=== PATIENT | female | born 1945 | race Caucasian/White ===

== ENCOUNTER → 2017-08-21 | Outpatient (CLI) | payer MEDICARE ==
--- NOTE | 2017-08-21 14:54 | Diagnostic Imaging Report ---
INDICATION: R/O TB. COMPARISON: None. FINDINGS: A single frontal view of the chest demonstrates normal heart size and pulmonary vascularity. The lungs are hyperinflated but otherwise clear. No large pleural effusion or pneumothorax is seen. The visualized osseous structures show no acute abnormalities. IMPRESSION: 1. No acute cardiopulmonary process. 2. Background of COPD. Dictated by: Dictated on workstation # [id number]
== END ==
LOC: RAD 13:54
PROVIDERS: ATTEND Family Medicine
DX: J44.9 Chronic obstructive pulmonary disease, unspecified (principal)
CPT/HCPCS: 71045

== ENCOUNTER → 2021-04-29 | Outpatient (CLI) | payer MEDICARE ==
[~2021-04-29] MED LIST: CATHETER FLUSH 10 ML SYR IV PRN; HOLD METFORMIN - RECEIVED CONTRAST 20 ML VIAL IV SCH; IOHEXOL 350 MG/ML 100 ML (OMNIPAQUE 350) VIAL IV ONE; NS 100 ML (IVPB) BAG IV ONE
[2021-04-29 09:19] LABS: CREATININE SERUM 0.68 MG/DL (0.60-1.30)
--- NOTE | 2021-04-29 10:26 | Diagnostic Imaging Report ---
EXAMINATION: CT abdomen and pelvis with and without intravenous contrast. TECHNIQUE: Precontrast acquisitions were acquired through the abdomen and pelvis. Multiple contiguous axial images were obtained through the abdomen and pelvis after the administration of intravenous contrast. All CT scans use one or more of the following dose optimizing techniques: automated exposure control, MA and/or KvP adjustment based on patient size and exam type or iterative reconstruction. HISTORY: Ovarian cancer, right inguinal hernia, right lower quadrant pain. COMPARISON: None available. FINDINGS: Limited views of the lower thorax are unremarkable. The liver is normal without focal lesion. There is no biliary ductal dilation. Gallbladder is normal. Pancreas is normal. Spleen is normal. Adrenal glands are normal. The kidneys are normal. There is no hydronephrosis. Urinary bladder is normal. There is a pessary device in the vagina. There is a serosal implant along the anterior surface of the left hemiliver measuring 2.3 x 1.4 cm. There is a moderate amount of ascites. There are implants along the left paracolic gutter measuring up to 1.2 cm. There is a small amount of fluid and a tiny right inguinal hernia. There is a nodule associated with the tip of the right hemiliver that measures 4.1 x 2.1 cm. Bowel is normal in caliber without obstruction or inflammation. There is no free air. No abdominal or pelvic lymphadenopathy. Aorta is normal in caliber without aneurysm. There are no suspicious osseus lesions. IMPRESSION: 1. Moderate ascites with enhancing nodules in the left paracolic gutter and associated with the liver surface consistent with metastatic ovarian cancer. 2. Small amount of fluid and a tiny right inguinal hernia. Dictated by: Dictated on workstation # [id number]
== END ==
LOC: RAD 09:45
PROVIDERS: ATTEND Nurse Practitioner
DX: C56.9 Malignant neoplasm of unspecified ovary (principal); K40.90 Unilateral inguinal hernia, without obstruction or gangrene, not specified as recurrent
CPT/HCPCS: 36415; 74178; 82565; 84520

== ENCOUNTER → 2021-05-27 | Outpatient (CLI) | payer MEDICARE ==
[2021-05-27 11:12] VITALS: BP 127/61
--- NOTE | 2021-05-27 13:46 | Diagnostic Imaging Report ---
Indication: Ascites. Sonographic interrogation of the abdomen does show a small amount of ascites in left lower quadrant. Marking was provided in left lower quadrant for performance of paracentesis by Dr. Galarza. IMPRESSION: Marking for paracentesis for Dr. Galarza. Dictated by: Dictated on workstation # [id number]
--- NOTE | 2021-05-27 21:25 | OPERATIVE REPORT ---
DATE OF SERVICE: 05/27/2021 ATTENDING MILIEU COUNSELOR: [facility]. PREPROCEDURE DIAGNOSIS: Symptomatic ascites with a history of ovarian cancer. POSTPROCEDURE DIAGNOSES: Symptomatic ascites with a history of ovarian cancer with blood-tinged slightly thick transudative fluid. PROCEDURE: Paracentesis under ultrasound guidance. SURGEON: Leana Contreras MD ANESTHESIA: Local. ESTIMATED BLOOD LOSS: Minimal. FINDINGS: Same as postoperative diagnoses. DISPOSITION: The patient tolerated the procedure well. INDICATIONS: The patient is a 75-year-old female with a history of ovarian cancer that was diagnosed approximately 4 years ago. She knows that this was an advanced ovarian cancer; however, only elected to proceed with a total hysterectomy and no chemotherapy, radiation or any other therapeutic measures. She presented with abdominal distention for the past several weeks. A CT scan was performed, which did show a moderate amount of ascites. She states that the ascites has increased in size and become uncomfortable. She will need a paracentesis for diagnostic purposes as well as for therapeutic reasons. An ultrasound was performed beforehand and the left lower abdominal quadrant was marked before the procedure. The abdomen was then prepped and draped in standard surgical fashion. A 1% lidocaine with epinephrine was then used to anesthetize the skin, subcutaneous tissue, muscle layers as well as the peritoneal lining. A vertical skin incision was then made using a #11 blade and the trocar and catheter were then placed into the peritoneal cavity withdrawing of blood-tinged slightly thick transudative fluid. The catheter was then connected to tubing and gravity drainage bag. The catheter was then cleaned and covered with Op-Site. The patient tolerated the procedure well. We will continue with drainage until she is asymptomatic and send the fluid off for cytology and once she is asymptomatic and decompressed remove the catheter. Job ID: [id number] DocumentID: [id number] Dictated Date: 05/27/2021 13:08:48 Building Architectural Designer Date: 05/27/2021 21:24:57 Dictated By: LEANA CONTRERAS MD
== END ==
LOC: RAD 11:06
PROVIDERS: ATTEND Surgery
DX: R18.8 Other ascites (principal)
CPT/HCPCS: 49082; 76942; 87070; 87205

== ENCOUNTER 2021-06-22 10:18 | Outpatient (CLI) | payer MEDICARE ==
[~2021-06-22] VITALS: Ht 154.9 cm; Wt 48.6 kg
[2021-06-22] VITALS (10 sets, daily range): BP systolic 120–143; BP diastolic 61–72
[2021-06-22 11:03] LABS: BASOPHILS % (AUTO) 1 % (0-10); EOSINOPHILS # (AUTO) 0.1 10^3/uL (0.0-0.3); EOSINOPHILS % (AUTO) 1 % (0-10); HEMATOCRIT 39 % (35-52); HEMOGLOBIN 12.7 g/dL (11.5-16.0); LYMPHOCYTES % (AUTO) 23 % (12-44); MEAN CORPUSCULAR HEMOGLOBIN 31 pg (25-34); MEAN CORPUSCULAR HGB CONC 33 g/dL (32-36); MEAN CORPUSCULAR VOLUME 96 fL (80-99); MEAN PLATELET VOLUME 11.7 fL (9.0-12.2); MONOCYTES # (AUTO) 0.4 10^3/uL (0.0-1.0); MONOCYTES % (AUTO) 9 % (0-12); NEUTROPHILS % (AUTO) 66 % (42-75); PLATELET COUNT 152 10^3/uL (130-400); WHITE BLOOD COUNT 4.5 10^3/uL (4.3-11.0)
[2021-06-22] MEDS ORDERED: fentaNYL INJ 100 MCG/2 ML AMP INJ ONE (11:15)
[2021-06-22] MEDS ORDERED: LIDOCAINE 1% INJ 20 ML VIAL INJ ONE (11:15)
[2021-06-22] MEDS ORDERED: MIDAZOLAM 2 MG/2 ML (VERSED) VIAL INJ ONE (11:15)
[2021-06-22] MEDS ORDERED: NS IV 1000 ML 1,000 ML IV SCH (11:15)
[2021-06-22 11:25] LABS: INR 0.9 (0.8-1.4); PROTHROMBIN TIME PATIENT 12.6 SEC (12.2-14.7)
[2021-06-22] MEDS ORDERED: GINGER (11:34)
[2021-06-22] MEDS ORDERED: FOLIC ACID (11:34)
[2021-06-22] MEDS ORDERED: CALC-794 PO (11:34)
[2021-06-22] MEDS ORDERED: BETA CAROTENE (11:34)
[2021-06-22] MEDS ORDERED: ZINC (11:34)
[2021-06-22] MEDS ORDERED: VITAMIN C (11:34)
[2021-06-22] MEDS ORDERED: OXYQ113.2 VG (11:34)
[2021-06-22] MEDS ORDERED: ALFALFA (11:34)
[2021-06-22] MEDS ORDERED: VITAMIN E (11:34)
[2021-06-22] MEDS ORDERED: ESTR42.52 VG (11:34)
[2021-06-22] MEDS ORDERED: PYRI25TA3 PO (11:34)
[2021-06-22] MEDS ORDERED: NETTLE LEAF (11:34)
[2021-06-22] MEDS ORDERED: VITAMIN K (11:34)
[2021-06-22] MEDS ORDERED: [UNRECOGNIZED DRUG - OTHER] (11:34)
[2021-06-22] MEDS ORDERED: HYDROcodone/APAP 5 MG/325 MG (LORTAB) TAB PO PRN (13:00)
--- NOTE | 2021-06-22 13:18 | Diagnostic Imaging Report ---
INDICATION: Mass along the surface of the left lobe of the liver. Patient presents for ultrasound-guided biopsy. FINDINGS: Patient was brought to the procedure room, placed on table in the supine position. Ultrasound imaging of the abdomen was performed to evaluate appropriate entry site. Left paramidline upper abdomen was prepped and draped in usual sterile fashion. Small amount of 1% lidocaine was utilized for local anesthesia. A total of three core biopsies were made of the solid ovoid mass along the surface of the left lobe of the liver utilizing the 14-gauge Achieve needle. Needle was removed and hemostasis was obtained using manual compression. Patient tolerated the procedure well and left the department in stable condition. IMPRESSION: Successful ultrasound-guided core biopsy of the solid nodule along the surface of the left lobe of the liver. Pathology results are currently pending. Dictated by: Dictated on workstation # [id number]
== END 2021-06-22 15:20 | disposition home or self-care (01) ==
LOC: RAD 10:18
PROVIDERS: ATTEND Surgery
DX: R16.0 Hepatomegaly, not elsewhere classified (principal)
CPT/HCPCS: 36415; 76942; 85025; 85610; 85730

== ENCOUNTER 2021-07-06 12:52 | Outpatient (RCR) | payer MEDICARE, OTHER ==
[~2021-07-06 12:52] MED LIST changes: +ALFALFA; +BETA CAROTENE; +CALC-794 PO; -CATHETER FLUSH 10 ML SYR IV PRN; +ESTR42.52 VG; +FOLIC ACID; +GINGER; -HOLD METFORMIN - RECEIVED CONTRAST 20 ML VIAL IV SCH; -IOHEXOL 350 MG/ML 100 ML (OMNIPAQUE 350) VIAL IV ONE; +NETTLE LEAF; -NS 100 ML (IVPB) BAG IV ONE; +OXYQ113.2 VG; +PYRI25TA3 PO; +VITAMIN C; +VITAMIN E; +VITAMIN K; +ZINC; +[UNRECOGNIZED DRUG - OTHER]
[2021-07-06 14:25] LABS: BASOPHILS % (AUTO) 1 % (0-10); EOSINOPHILS # (AUTO) 0.1 10^3/uL (0.0-0.3); EOSINOPHILS % (AUTO) 2 % (0-10); HEMATOCRIT 39 % (35-52); HEMOGLOBIN 12.7 g/dL (11.5-16.0); LYMPHOCYTES # (AUTO) 1.2 10^3/uL (1.0-4.0); LYMPHOCYTES % (AUTO) 22 % (12-44); MEAN CORPUSCULAR HEMOGLOBIN 32 pg (25-34); MEAN CORPUSCULAR HGB CONC 33 g/dL (32-36); MEAN CORPUSCULAR VOLUME 97 fL (80-99); MEAN PLATELET VOLUME 11.4 fL (9.0-12.2); MONOCYTES # (AUTO) 0.5 10^3/uL (0.0-1.0); MONOCYTES % (AUTO) 9 % (0-12); NEUTROPHILS # (AUTO) 3.5 10^3/uL (1.8-7.8); NEUTROPHILS % (AUTO) 66 % (42-75); PLATELET COUNT 195 10^3/uL (130-400); WHITE BLOOD COUNT 5.3 10^3/uL (4.3-11.0)
[2021-07-06 14:49] LABS: ALBUMIN 3.9 GM/DL (3.2-4.5); BILIRUBIN,TOTAL 0.2 MG/DL (0.1-1.0); CALCIUM 9.2 MG/DL (8.5-10.1); CREATININE SERUM 0.63 MG/DL (0.60-1.30); POTASSIUM 4.2 MMOL/L (3.6-5.0); TOTAL PROTEIN 6.7 GM/DL (6.4-8.2)
== END 2021-07-11 | disposition home or self-care (01) ==
LOC: ONC 12:52
PROVIDERS: ATTEND Internal Medicine Hematology & Oncology
DX: Z45.2 Encounter for adjustment and management of vascular access device (principal); Z85.43 Personal history of malignant neoplasm of ovary
CPT/HCPCS: 80053; 85025; 85610; 85705; 85730; G0463; 36415; 99214

== ENCOUNTER 2021-08-10 10:24 | Outpatient (RCR) | payer MEDICARE | END 2021-08-11 | LOC: ONC 10:24 | PROVIDERS: ATTEND Internal Medicine Hematology & Oncology | DX: Z45.2 Encounter for adjustment and management of vascular access device (principal); Z85.43 Personal history of malignant neoplasm of ovary | CPT/HCPCS: 99213 ==

== ENCOUNTER → 2021-08-19 | Outpatient (CLI) | payer MEDICARE ==
[~2021-08-19] VITALS: Ht 154 cm; Wt 48.6 kg
[2021-08-19 11:19] VITALS: BP 134/66
--- NOTE | 2021-08-19 12:56 | Diagnostic Imaging Report ---
INDICATION: Ascites. Evaluation of all 4 quadrants of the abdomen was performed to evaluate for ascites. Only a small amount of ascites is present. A small volume of fluid in the left lower quadrant is noted. Overall volume is likely insufficient for safe paracentesis. IMPRESSION: Small volume of ascites, as described. Overall volume does appear to be insufficient for safe paracentesis. Dictated by: Dictated on workstation # [id number]
--- NOTE | 2021-08-19 16:55 | OPERATIVE REPORT ---
DATE OF SERVICE: 08/19/2021 PREOPERATIVE DIAGNOSES: Recurrent symptomatic ascites with history of ovarian cancer. POSTOPERATIVE DIAGNOSES: Recurrent symptomatic ascites with history of ovarian cancer. PROCEDURE PERFORMED: Paracentesis. SURGEON: Leana Contreras MD. ANESTHESIA: Local. ESTIMATED BLOOD LOSS: Minimal. FINDINGS: Straw yellow transudative fluid. DISPOSITION: The patient tolerated the procedure well. INDICATIONS FOR PROCEDURE: The patient is a 76-year-old female, who we have seen before in the past. Several months ago, she did develop abdominal distention and she did have radiographic imaging consistent with ascites. She then underwent a paracentesis. She reports that she has had some mild recurrence of the abdominal distention and an ultrasound was performed, which did localize recurrent ascites fluid. DESCRIPTION OF PROCEDURE: The left lower abdominal quadrant was marked by ultrasound before the procedure and the abdomen was prepped and draped in a standard surgical fashion. A 1% lidocaine was then used to anesthetize the skin, subcutaneous tissue, muscle layers as well as the peritoneal lining. A vertical skin incision was made using 11 blade. The catheter and trocar were then introduced withdrawing of straw yellow transudative fluid and the catheter was then placed over the trocar without any resistance. The catheter was then connected to tubing and a gravity drainage bag. The catheter was then cleaned and covered with 4 x 4 gauze followed by Op-Site. The patient tolerated the procedure well. We will continue with drainage until there is symptomatic decompression of the abdomen and there is minimal drainage and then remove the catheter. If she does have reoccurrence, we will have her call the office and we will schedule another outpatient paracentesis. Job ID: [id number] DocumentID: [id number] Dictated Date: 08/19/2021 12:38:31 Manager Route Date: 08/19/2021 16:54:20 Dictated By: LEANA CONTRERAS MD
== END ==
LOC: SDC 11:08
PROVIDERS: ATTEND Surgery
DX: R18.8 Other ascites (principal)
CPT/HCPCS: 49082; 76942

== ENCOUNTER → 2021-10-11 | Outpatient (RCR) | payer MEDICARE | END | disposition home or self-care (01) | LOC: ONC 09:54 | PROVIDERS: ATTEND Internal Medicine Hematology & Oncology | DX: Z85.43 Personal history of malignant neoplasm of ovary (principal) | CPT/HCPCS: 99213 ==

== ENCOUNTER → 2021-10-28 | Outpatient (CLI) | payer MEDICARE ==
--- NOTE | 2021-10-28 11:36 | Diagnostic Imaging Report ---
PROCEDURE: US Abdomen, limited. TECHNIQUE: Multiple realtime grayscale images were obtained over the abdomen in various projections. INDICATION: Ascites. Sonographic interrogation of all 4 quadrants of the abdomen was performed. There is a moderate amount of ascites. Greatest amount of ascites is located in the right lower quadrant however there was a fair amount of bowel loops present between the abdominal wall and the free fluid. Due to limited access, patient elected to wait a while longer before undergoing a paracentesis. IMPRESSION: Ascites. Patient elected to wait for paracentesis. Dictated by: Dictated on workstation # [id number]
== END ==
LOC: RAD 08:13
PROVIDERS: ATTEND Internal Medicine Hematology & Oncology
DX: R18.8 Other ascites (principal)
CPT/HCPCS: 76705

== ENCOUNTER → 2021-12-09 | Outpatient (CLI) | payer MEDICARE ==
[~2021-12-09] VITALS: Wt 48.6 kg
[~2021-12-09] MED LIST changes: +LIDOCAINE 1% INJ 20 ML VIAL INJ ONE; +LIDOCAINE 1% INJ 20 ML VIAL ONE
[2021-12-09 12:05] VITALS: BP 118/60
--- NOTE | 2021-12-09 15:05 | Diagnostic Imaging Report ---
Indication: Ascites Single view images of the abdomen demonstrates a moderate amount of ascites in the left lower quadrant. Impression: A single ultrasound view demonstrates moderate amount of ascites in the left lower quadrant. Paracentesis was provided by Dr. Galarza, see his dictation. Dictated by: Dictated on workstation # [id number]
== END ==
LOC: RAD 11:58
PROVIDERS: ATTEND Surgery
DX: R53.83 Other fatigue (principal)
CPT/HCPCS: 49082; 76942

== ENCOUNTER 2022-01-18 10:35 | Outpatient (RCR) | payer MEDICARE ==
[~2022-01-18 10:35] MED LIST changes: -LIDOCAINE 1% INJ 20 ML VIAL INJ ONE; -LIDOCAINE 1% INJ 20 ML VIAL ONE
[2022-01-18 11:13] LABS: BASOPHILS % (AUTO) 1 % (0-10); EOSINOPHILS # (AUTO) 0.2 10^3/uL (0.0-0.3); EOSINOPHILS % (AUTO) 3 % (0-10); HEMATOCRIT 36 % (35-52); HEMOGLOBIN 11.7 g/dL (11.5-16.0); LYMPHOCYTES # (AUTO) 0.6 10^3/uL (1.0-4.0); LYMPHOCYTES % (AUTO) 13 % (12-44); MEAN CORPUSCULAR HEMOGLOBIN 31 pg (25-34); MEAN CORPUSCULAR HGB CONC 33 g/dL (32-36); MEAN CORPUSCULAR VOLUME 96 fL (80-99); MEAN PLATELET VOLUME 11.5 fL (9.0-12.2); MONOCYTES # (AUTO) 0.5 10^3/uL (0.0-1.0); MONOCYTES % (AUTO) 10 % (0-12); NEUTROPHILS # (AUTO) 3.6 10^3/uL (1.8-7.8); NEUTROPHILS % (AUTO) 74 % (42-75); PLATELET COUNT 216 10^3/uL (130-400); WHITE BLOOD COUNT 4.9 10^3/uL (4.3-11.0)
[2022-01-18 11:35] LABS: ALBUMIN 3.6 GM/DL (3.2-4.5); BILIRUBIN,TOTAL 0.3 MG/DL (0.1-1.0); CALCIUM 9.2 MG/DL (8.5-10.1); CREATININE SERUM 0.67 MG/DL (0.60-1.30); POTASSIUM 3.9 MMOL/L (3.6-5.0); TOTAL PROTEIN 6.6 GM/DL (6.4-8.2)
[2022-02-04] MEDS ORDERED: IBUP-844 PO (08:47)
[2022-02-04] MEDS ORDERED: DOCU100C37 PO (08:47)
[2022-02-04] MEDS ORDERED: OXC5T PO (08:47)
== END 2022-02-10 | disposition home or self-care (01) ==
LOC: ONC 10:35
PROVIDERS: ATTEND Internal Medicine Hematology & Oncology
DX: D39.10 Neoplasm of uncertain behavior of unspecified ovary (principal)
CPT/HCPCS: 80053; 85025; G0463; 36415; 99213

== ENCOUNTER 2022-01-25 12:03 | Day surgery (SDC) | payer MEDICARE ==
[~2022-01-25] VITALS: Wt 48.6 kg
[2022-01-25] MEDS ORDERED: LIDOCAINE 1% INJ 20 ML VIAL ONE (12:23)
[2022-01-25] MEDS ORDERED: LIDOCAINE 1% INJ 20 ML VIAL INJ ONE (12:30)
[2022-01-25 12:55] VITALS: BP 131/65
== END 2022-01-25 13:00 | disposition home or self-care (01) ==
LOC: SDC 12:03
PROVIDERS: ATTEND Surgery
DX: R18.8 Other ascites (principal); Z53.09 Procedure and treatment not carried out because of other contraindication

== ENCOUNTER 2022-02-01 05:31 | Outpatient (CLI) | payer MEDICARE ==
[~2022-02-01] VITALS: Ht 150.4 cm; Wt 49.0 kg
--- NOTE | 2022-02-02 17:05 | Progress Note-Pre Operative ---
Pre-Operative Progress Note Date of Available H&P: Feb 03, 2022 Date H&P Reviewed: Feb 03, 2022 Time H&P Reviewed: 12:30 History & Physical: H&P Reviewed, No changes noted Pre-Operative Diagnosis: complete vaginal prolapse and GLORIA LINCOLN DE LA FUENTE MD Feb 02, 2022 17:05
--- NOTE | 2022-02-02 17:07 | Progress Note-Post Operative ---
Post-Operative Progess Note Surgeon (s)/Monument Mason (s) Surgeon LINCOLN DE LA FUENTE MD Monument Mason: Several Pre-Operative Diagnosis complete vaginal prolapse and GLORIA Post-Operative Diagnosis same Procedure & Operative Findings Date of Procedure 02/02/22 Procedure Performed/Findings Anterior and posterior vaginal repairs with enterocele repair, sacrospinous ligament suspension - Dr. Alexandra did PVS and Cysto Anesthesia Type gen Estimated Blood Loss Estimated blood loss (mL): 500cc Specimens/Packing Specimens Removed none for pathology Packing: kerlix in vagina LINCOLN DE LA FUENTE MD Feb 02, 2022 17:07
== END 2022-02-01 12:35 ==
LOC: PREOP 05:31
PROVIDERS: ATTEND Obstetrics & Gynecology
DX: Z01.818 Encounter for other preprocedural examination (principal)

== ENCOUNTER 2022-02-03 10:10 | Observation (INO) | payer MEDICARE ==
[2022-02-03] VITALS (8 sets, daily range): BP systolic 110–134; BP diastolic 52–89
[~2022-02-03] VITALS: Ht 150 cm; Wt 49.0 kg
[~2022-02-03 10:10] MED LIST changes: -DOCU100C37 PO; -IBUP-844 PO; -LIDOCAINE 1% INJ 20 ML VIAL INJ ONE; -LIDOCAINE 2% 20 ML (XYLOCAINE) VIAL INJ ONE; -OXC5T PO
[2022-02-03] MEDS ORDERED: ESTRADIOL VAGINAL CREAM 42.5 GM (ESTRACE) VG ONE ×2 (10:54→13:00)
[2022-02-03] MEDS ORDERED: fentaNYL INJ 100 MCG/2 ML AMP ONE (10:59)
[2022-02-03] MEDS ORDERED: LIDOCAINE PF 2% 5 ML (XYLOCAINE) VIAL ONE (10:59)
[2022-02-03] MEDS ORDERED: SEVOFLURANE (ULTANE) 15 ML INHAL SOLN ONE (10:59)
[2022-02-03] MEDS ORDERED: ROCURONIUM 10 MG/ML 5 ML SYRINGE IV ONE (10:59)
[2022-02-03] MEDS ORDERED: proPOfol 200 MG/20 ML (DIPRIVAN) VIAL IV ONE (10:59)
[2022-02-03] MEDS ORDERED: ONDANSETRON 4 MG/2 ML (SDV) Z0FRAN ONE (10:59)
[2022-02-03 11:15] LABS: BASOPHILS % (AUTO) 1 % (0-10); EOSINOPHILS # (AUTO) 0.1 10^3/uL (0.0-0.3); EOSINOPHILS % (AUTO) 3 % (0-10); HEMATOCRIT 33 % (35-52); HEMOGLOBIN 11.1 g/dL (11.5-16.0); LYMPHOCYTES # (AUTO) 0.7 10^3/uL (1.0-4.0); LYMPHOCYTES % (AUTO) 18 % (12-44); MEAN CORPUSCULAR HEMOGLOBIN 32 pg (25-34); MEAN CORPUSCULAR HGB CONC 34 g/dL (32-36); MEAN CORPUSCULAR VOLUME 95 fL (80-99); MEAN PLATELET VOLUME 11.4 fL (9.0-12.2); MONOCYTES # (AUTO) 0.4 10^3/uL (0.0-1.0); MONOCYTES % (AUTO) 11 % (0-12); NEUTROPHILS # (AUTO) 2.6 10^3/uL (1.8-7.8); NEUTROPHILS % (AUTO) 66 % (42-75); PLATELET COUNT 197 10^3/uL (130-400)
[2022-02-03] MEDS ORDERED: ONDANSETRON 4 MG/2 ML (SDV) Z0FRAN IVP PRN ×2 (11:15→14:30)
[2022-02-03] MEDS ORDERED: ceFAZolin INJECTION 1,000 MG VIAL IV ONE (11:15)
[2022-02-03] MEDS ORDERED: KETOROLAC 15 MG/ML VIAL IV SCH (11:15)
[2022-02-03] MEDS ORDERED: BENZOCAINE/MENTHOL (DERMOPLAST) 56 ML CAN TP PRN (11:15)
[2022-02-03] MEDS ORDERED: ESTROGENS CONJ INJECTION 25 MG in WATER (STERILE) FOR INJECTION 5 ML IV ONE (11:15)
[2022-02-03] MEDS ORDERED: PROMETHAZINE INJ 25 MG/ML (PHENERGAN) AMP IM PRN (11:15)
[2022-02-03] MEDS ORDERED: LIDOCAINE 1% INJ 20 ML VIAL ONE (11:20)
[2022-02-03] MEDS ORDERED: ceFAZolin INJECTION 1,000 MG ONE (11:25)
[2022-02-03] MEDS ORDERED: LACTATED RINGERS 1,000 ML IV ONE (12:00)
--- NOTE | 2022-02-03 13:25 | Progress Note-Post Operative ---
Post-Operative Progess Note Surgeon (s)/Director Digital (s) Surgeon EDU CORNEJO MD Director Digital: MD LEISA Pre-Operative Diagnosis GLORIA Post-Operative Diagnosis SAME Procedure & Operative Findings Date of Procedure 02/03/22 Procedure Performed/Findings PVS AND CYSTO Anesthesia Type GENERAL Estimated Blood Loss Estimated blood loss (mL): NEGLIGIBLE Specimens/Packing Specimens Removed NONE Packin GM ESTRACE VAG PACK EDU CORNEJO MD Feb 03, 2022 13:25
[2022-02-03] MEDS ORDERED: LACTATED RINGERS 1,000 ML IV PRN (13:30)
[2022-02-03] MEDS ORDERED: ESTROGENS CONJ INJECTION 5 ML ONE (14:28)
[2022-02-03] MEDS ORDERED: WATER (STERILE) FOR INJECTION 10 ML ONE (14:29)
[2022-02-03] MEDS ORDERED: morphine INJ 10 MG/ML 1ML (SYR OR VIAL) ONE (14:30)
[2022-02-03] MEDS ORDERED: morphine INJ 10 MG/ML 1ML (SYR OR VIAL) IVP ONE (14:30)
[2022-02-03] MEDS: KETOROLAC 30 MG/ML VIAL ONE ×2 (14:34→14:48)
[2022-02-03] MEDS: ACETAMINOPHEN 500 MG TAB (TYLENOL) PO PRN (15:52)
--- NOTE | 2022-02-03 21:00 | OPERATIVE REPORT ---
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 PROCEDURE: Paracentesis. SURGEON: Leana Contreras MD ANESTHESIA: Local. ESTIMATED BLOOD LOSS: Minimal. FINDINGS: Straw yellow transudative fluid. DISPOSITION: The patient tolerated the procedure well. INDICATIONS: The patient is a 76-year-old female who we have done 2 previous paracenteses for symptomatic ascites. 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 She has developed abdominal distention and found to have ascites. She has developed recurrence of abdominal distention consistent with recurrent ascites, which was confirmed by ultrasound and marked on the right lower quadrant of the abdomen. The patient is also scheduled for repair of vaginal prolapse. DESCRIPTION OF PROCEDURE: The left lower abdominal quadrant was marked by ultrasound before the procedure and the abdomen prepped and draped in standard surgical fashion. A 1% lidocaine was then anesthetized the skin, subcutaneous tissue, muscle layers as well as the peritoneal lining. A vertical skin incision was made using 11 blade. The catheter and trocar were then introduced withdrawing of thick straw yellow transudative fluid and the catheter was placed until the peritoneal cavity over the trocar without any resistance. The catheter was then connected to tubing and gravity drainage bag. The catheter was then cleaned and covered with 4 x 4 gauze followed by Op-Site. The patient tolerated the procedure well. The patient will undergo the procedure and once there is minimal drainage through the gravity drainage bag, the catheter may be removed. She does have recurrence. We will instruct her to call the office to again schedule an outpatient paracentesis. Job ID: [id number] DocumentID: [id number] Dictated Date: 02/03/2022 12:10:43 Brand Lead Date: 02/03/2022 21:00:11 Dictated By: LEANA CONTRERAS MD
[2022-02-03] MEDS: KETOROLAC 15 MG/ML VIAL IV SCH (21:21)
--- NOTE | 2022-02-03 22:34 | OPERATIVE REPORT ---
DATE OF SERVICE: 02/03/2022 PREOPERATIVE DIAGNOSIS: Stress urinary incontinence. POSTOPERATIVE DIAGNOSIS: Stress urinary incontinence. OPERATION PERFORMED: Pubovaginal sling and cystoscopy. SURGEON: Edu Cornejo MD. CHILDREN'S COUNSELOR: Ben Bee M.D. COMPLICATIONS: None. DESCRIPTION OF PROCEDURE: After Dr. Bee performed the first part of his surgery that he will dictate, I went ahead and inserted a Cary catheter draining clear urine. I passed the Desara sling instrument on both sides using the described technique. The sling was sitting nicely under the mid urethra with no twisting, tension and passage of a curved hemostat easily between it and the underlying urethra. I removed the catheter to perform cystoscopy to confirm the integrity of the ureters, bladder and urethra with no foreign bodies. I left the bladder half full to perform a manual Valsalva maneuver that was negative. I went ahead and reinserted the Cary catheter draining clear fluid. Estimated blood loss on my part negligible and Dr. Bee proceeded with rest of his surgery that he will dictate. CC: [facility] - requested, unable to deliver Job ID: [id number] DocumentID: [id number] Dictated Date: 02/03/2022 13:28:45 Timber Management Technician Date: 02/03/2022 22:34:11 Dictated By: EDU CORNEJO MD
[2022-02-04] VITALS: BP 130/62
--- NOTE | 2022-02-04 00:10 | OPERATIVE REPORT ---
DATE OF SERVICE: 02/03/2022 PREOPERATIVE DIAGNOSIS: Complete vaginal prolapse with stress urinary incontinence. POSTOPERATIVE DIAGNOSIS: Complete vaginal prolapse with stress urinary incontinence. OPERATIVE PROCEDURE: Anterior and posterior vaginal repairs with enterocele repair as well as sacrospinous ligament suspension and with Dr. Alexandra performing a pubovaginal sling and cystoscopy. OPERATIVE DESCRIPTION: With the patient in the supine position under satisfactory general anesthesia, she was repositioned in dorsal lithotomy position in the Vince stirrups and prepped and draped in the usual fashion for vaginal surgery. This patient has history of granulosa cell tumor of the ovary. She has apparently extensive abdominal mets and develops recurrent ascites. Just prior to the procedure, Dr. Galarza placed a peritoneal catheter for paracentesis. That remained draining throughout the case with plans to remove that catheter after the procedure. With the patient prepped and draped, the vagina was completely everted representing a large herniation of the vagina outside the body. This was replaced manually. Kwame clamps were then placed on the anterior vaginal wall. The vaginal wall was opened in the midline. The bladder was carefully dissected off the muscularis of the vagina back to the pubic rami bilaterally. Dissection was extensive and meticulous due to the large prolapse and to the distortion and thickening of the vaginal mucosa. The bladder when eventually repositioned into the pelvis was supported by plicating the endopelvic fascia and the bladder wall with 2-0 Vicryl sutures. Good support was evident. At this point, Dr. Alexandra assumed care of the patient. Cary catheter was placed to dependent drainage. Dr. Alexandra performed a pubovaginal sling and cystoscopy. I have remained to assist with those portions of the procedure. On completion of Dr. Alexandra's procedures, he reported normal findings with the cystoscope. I resumed care of the patient, resected the redundant anterior vaginal muscularis mucosa and closed the vaginal wall with a running locked suture of 2-0 Vicryl Rapide. Good support was evident and good hemostasis was achieved. Posterior repair was not affected by placing Kwame clamps on the perineum and hymenal ring at 5 and 7 o'clock position and inverted triangle skin was removed from the perineal body and upright triangle from the posterior vaginal floor. The rectovaginal space was entered sharply and dissected bluntly to the apex of the vagina. Digital dissection was carried over to the right rectal pillar to the right sacrospinous ligament and ischial spine. The Capio device was loaded with a 2-0 Ethibond suture that suture was placed 0.5 cm medial to the right ischial spine and second suture of the same material placed a centimeter medial to that. Both arms of both sutures were brought out through the apex of the vagina, tagged and held long for tying later. The rectovaginal space was repaired by first obliterating the enterocele and then obliterating the rectovaginal space with 2-0 Vicryl interrupted sutures. Additional sutures of 2-0 Vicryl were used to restore the perineal body. Digital rectal exam confirmed no stricture or stenosis of the rectum and no sutures into or through the rectal mucosa. Redundant posterior vaginal muscularis mucosa was now removed sharply. The vaginal wall was closed with running locked suture again of 2-0 Vicryl Rapide, that closure was continued past the hymenal ring down on the perineal body then back up subcutaneous to the hymenal ring where the suture was tied. Digital rectal exam again confirmed no stricture or stenosis of the rectum and no sutures into or through the rectal mucosa. The sacrospinous ligament suspension sutures were now tied; as each was tied, the apex of vagina was brought well back up into the pelvis. With the procedure complete, hemostasis assured and a normal digital rectal exam, the vagina was filled with Estrace vaginal cream and a pack of Kerlix gauze was placed. The Cary catheter had been left to dependent drainage by Dr. Alexandra. Sponge and needle counts were correct on completion of the procedure. Blood loss was around 500 mL. The patient tolerated the procedure well and was uneventfully awakened from her general anesthesia and transferred to recovery room in stable condition. Plans were for outpatient surgery to remove her peritoneal paracentesis catheter in the recovery room. Job ID: [id number] DocumentID: [id number] Dictated Date: 02/03/2022 15:46:26 Water Registrar Date: 02/04/2022 00:09:27 Dictated By: LINCOLN DE LA FUENTE MD
[2022-02-04] MEDS: D5 LR IV SOLUTION 1,000 ML IV SCH ×2 (04:12)
[2022-02-04 04:43] VITALS: BP 101/49
[2022-02-04] MEDS: KETOROLAC 15 MG/ML VIAL IV SCH ×2 (04:43→10:29)
[2022-02-04] MEDS ORDERED: OXC5T PO (08:47)
[2022-02-04] MEDS ORDERED: IBUP-844 PO (08:47)
[2022-02-04] MEDS ORDERED: DOCU100C37 PO (08:47)
--- NOTE | 2022-02-04 08:47 | Progress Note ---
Standard Progress Note Progress Notes/Assess & Plan Date Seen by a Provider: Feb 04, 2022 Time Seen by a Provider: 08:42 Progress/Assessment & Plan This patient is without complaint. She is tolerating oral intake and has good pain control. She has not ambulated yet. Her Cary catheter has been removed and she has not voided yet. Vital Signs Date Time Temp Pulse Resp B/P (MAP) Pulse Ox O2 Delivery O2 Flow Rate FiO2 02/04/22 04:43 37.2 69 16 101/49 (66) 97 Room Air 02/04/22 00:00 36.4 68 16 130/62 (84) 98 Room Air 02/03/22 21:00 98 Room Air 02/03/22 21:00 36.6 77 16 134/66 (88) 98 Room Air 02/03/22 20:41 Room Air 02/03/22 15:30 97 Room Air 02/03/22 15:27 36.2 58 16 128/61 (83) 99 Room Air 02/03/22 15:15 Room Air 02/03/22 15:00 36.1 10 115/69 (84) 99 Room Air 02/03/22 14:50 12 126/72 (90) 99 OxyMask 10.00 02/03/22 14:45 OxyMask 10.00 02/03/22 14:40 14 123/63 (83) 99 OxyMask 10.00 02/03/22 14:30 14 134/89 (104) 100 OxyMask 10.00 02/03/22 14:21 13 112/59 (76) 100 OxyMask 10.00 02/03/22 14:17 OxyMask 10.00 02/03/22 14:17 36.1 28 110/52 (71) 100 OxyMask 10.00 I & O 02/04/22 07:00 Intake Total 2205 ml Output Total 5650 ml Balance -3445 ml Vital signs are stable. Patient is afebrile. The abdomen is benign Pelvic exam is deferred Extremities show no clubbing or cyanosis. There is no Homans' sign. Assessment and plan Postoperative day #1 status post pelvic reconstructive surgery for complete vaginal prolapse and stress urinary incontinence. Patient is doing well bladder trial is ongoingAnd she will have routine convalescent care Final Diagnosis Complete vaginal prolapse LINCOLN DE LA FUENTE MD Feb 04, 2022 08:47
--- NOTE | 2022-02-04 08:50 | Discharge Inst-Surgical ---
Discharge Inst-Surgical Depart Medication/Instructions New, Converted or Re-Newed RX: Transmitted to Pharmacy Consults/Follow Up Patient Instructions: As directed Orders & Referrals Follow Up Appt: Call to make follow up appt. for patient in 4 weeks. Activity: Rest for 24 hours, than as tolerated. Diet: As tolerated shower or tub bathe as desired. Continue all home medications No driving for 24 hours, no alcoholic beverages for 24 hours, and nothing per vagina (no tampons, douching, or intercourse) for 4 weeks. Patient to return to the clinic as soon as possible for: Temperature greater than 101F, Severe Pain, Foul discharge from incision or vagina, Excessive Bleeding (more than a period). Activity Activity as Tolerated: No Diet Discharge Diet: No Restrictions LINCOLN DE LA FUENTE MD Feb 04, 2022 08:50
[2022-02-04 08:52] VITALS: BP 97/51
[2022-02-04 09:30] LABS: BASOPHILS % (AUTO) 0 % (0-10); EOSINOPHILS % (AUTO) 0 % (0-10); HEMATOCRIT 24 % (35-52); HEMOGLOBIN 7.8 g/dL (11.5-16.0); LYMPHOCYTES # (AUTO) 0.9 10^3/uL (1.0-4.0); LYMPHOCYTES % (AUTO) 8 % (12-44); MEAN CORPUSCULAR HEMOGLOBIN 31 pg (25-34); MEAN CORPUSCULAR HGB CONC 32 g/dL (32-36); MEAN CORPUSCULAR VOLUME 98 fL (80-99); MEAN PLATELET VOLUME 11.5 fL (9.0-12.2); MONOCYTES # (AUTO) 0.8 10^3/uL (0.0-1.0); MONOCYTES % (AUTO) 7 % (0-12); NEUTROPHILS # (AUTO) 9.7 10^3/uL (1.8-7.8); NEUTROPHILS % (AUTO) 84 % (42-75); PLATELET COUNT 166 10^3/uL (130-400); WHITE BLOOD COUNT 11.6 10^3/uL (4.3-11.0)
--- NOTE | 2022-02-04 09:30 | Anesthesia-General Post-Op ---
General Patient Condition Mental Status/LOC: Same as Preop Cardiovascular: Satisfactory Nausea/Vomiting: Absent Respiratory: Satisfactory Pain: Controlled Complications: Absent Post Op Complications Complications None Follow Up Care/Instructions Patient Instructions None needed. Anesthesia/Patient Condition Patient Condition Patient is doing well, no complaints, stable vital signs, no apparent adverse anesthesia problems. No complications reported per nursing. D/C home per [facility] Criteria: Yes SHINE MONTERO CRNA Feb 04, 2022 09:30
[2022-02-04] MEDS ORDERED: KETOROLAC 15 MG/ML VIAL ONE (10:06)
[2022-02-04] MEDS: DOCUSATE SODIUM 100 MG (COLACE) CAP PO SCH (10:28)
[2022-02-04] MEDS: IBUPROFEN 600 MG (MOTRIN) TAB PO PRN ×2 (10:29→17:22)
[2022-02-04 14:45] VITALS: BP 102/49
[2022-02-04 20:15] VITALS: BP 100/47
[2022-02-05] VITALS: BP 106/49
[2022-02-05] MEDS: DOCUSATE SODIUM 100 MG (COLACE) CAP PO SCH ×3 (00:30→20:15)
[2022-02-05] MEDS: ACETAMINOPHEN 500 MG TAB (TYLENOL) PO PRN ×3 (00:30→18:15)
[2022-02-05 04:15] VITALS: BP 111/51
[2022-02-05] MEDS: IBUPROFEN 600 MG (MOTRIN) TAB PO PRN ×3 (08:01→20:29)
[2022-02-05 08:07] VITALS: BP 107/51
--- NOTE | 2022-02-05 11:01 | Progress Note ---
Standard Progress Note Progress Notes/Assess & Plan Date Seen by a Provider: Feb 05, 2022 Time Seen by a Provider: 10:58 Progress/Assessment & Plan This patient is without complaint. She is tolerating oral intake and has good pain control. She has not ambulated yet. Her Cary catheter has been removed and she has not voided yet. Vital Signs Date Time Temp Pulse Resp B/P (MAP) Pulse Ox O2 Delivery O2 Flow Rate FiO2 02/04/22 04:43 37.2 69 16 101/49 (66) 97 Room Air 02/04/22 00:00 36.4 68 16 130/62 (84) 98 Room Air 02/03/22 21:00 98 Room Air 02/03/22 21:00 36.6 77 16 134/66 (88) 98 Room Air 02/03/22 20:41 Room Air 02/03/22 15:30 97 Room Air 02/03/22 15:27 36.2 58 16 128/61 (83) 99 Room Air 02/03/22 15:15 Room Air 02/03/22 15:00 36.1 10 115/69 (84) 99 Room Air 02/03/22 14:50 12 126/72 (90) 99 OxyMask 10.00 02/03/22 14:45 OxyMask 10.00 02/03/22 14:40 14 123/63 (83) 99 OxyMask 10.00 02/03/22 14:30 14 134/89 (104) 100 OxyMask 10.00 02/03/22 14:21 13 112/59 (76) 100 OxyMask 10.00 02/03/22 14:17 OxyMask 10.00 02/03/22 14:17 36.1 28 110/52 (71) 100 OxyMask 10.00 I & O 02/04/22 07:00 Intake Total 2205 ml Output Total 5650 ml Balance -3445 ml Vital signs are stable. Patient is afebrile. The abdomen is benign Pelvic exam is deferred Extremities show no clubbing or cyanosis. There is no Homans' sign. Assessment and plan Postoperative day #1 status post pelvic reconstructive surgery for complete vaginal prolapse and stress urinary incontinence. Patient is doing well bladder trial is ongoingAnd she will have routine convalescent care February 05, 2022 Patient is without complaint. She has not had a bowel movement since admission we discussed eventual use of cathartics if she feels like she needs to have a bowel movement and is not happening. Currently she does not complain of symptoms of constipation. Patient has not voided as of yet and has had post void residuals of in excess of [address] Burciaga is managing. PatientHas good pain control and is ambulating. Vital Signs Date Time Temp Pulse Resp B/P (MAP) Pulse Ox O2 Delivery O2 Flow Rate FiO2 02/05/22 08:10 Room Air 02/05/22 08:07 37.6 72 18 107/51 (69) 95 Room Air 02/05/22 04:15 37.4 77 18 111/51 (71) 95 02/05/22 00:00 37.8 81 18 106/49 (68) 96 02/04/22 20:15 97 Room Air 02/04/22 20:15 38.0 78 18 100/47 (64) 97 02/04/22 14:45 37.0 75 18 102/49 (66) 98 I & O 02/05/22 07:00 Intake Total 240 ml Output Total 800 ml Balance -560 ml Patient's abdomen is benign Extremities show no clubbing or cyanosis. There is no Homans' sign. Assessment and plan Hospital day 2 status post pelvic reconstructive surgery for complete vaginal prolapse and stress urinary incontinence. Patient is doing well except for return of bladder function. Dr. Burciaga is managing that issue with the patient. Plan will be for discharge home when patient is requesting discharge and it is okay with Dr. Burciaga as far as bladder management. We will order Dulcolax tablets for patient to take orally as needed need for bowel movement Patient has granulosa cell ovarian cancer and is stable with that. She did have paracentesis on the day of surgery with removal of in excess of 3500cc ascites. Patient is anemic but is asymptomatic at this point we will just continue obse rvationAnd allow for spontaneous resolution of her anemiaProviding no particular symptoms develop that would warrant blood transfusion Final Diagnosis Complete vaginal prolapse and stress urinary incontinence LINCOLN DE LA FUENTE MD Feb 05, 2022 11:01
[2022-02-05] MEDS ORDERED: BISACODYL 5 MG (DULCOLAX) TABLET PO PRN (11:15)
[2022-02-05] MEDS: BETHANECHOL 25 MG (URECHOLINE) TAB PO SCH ×3 (12:08→20:15)
[2022-02-05 12:21] VITALS: BP 117/58
[2022-02-05 17:21] VITALS: BP 111/53
[2022-02-05 21:00] VITALS: BP 112/55
[2022-02-06 03:30] VITALS: BP 108/73
[2022-02-06] MEDS: BETHANECHOL 25 MG (URECHOLINE) TAB PO SCH ×2 (05:20→11:25)
--- NOTE | 2022-02-06 07:59 | Progress Note ---
Standard Progress Note Progress Notes/Assess & Plan Date Seen by a Provider: Feb 06, 2022 Time Seen by a Provider: 07:58 Progress/Assessment & Plan This patient is without complaint. She is tolerating oral intake and has good pain control. She has not ambulated yet. Her Cary catheter has been removed and she has not voided yet. Vital Signs Date Time Temp Pulse Resp B/P (MAP) Pulse Ox O2 Delivery O2 Flow Rate FiO2 02/04/22 04:43 37.2 69 16 101/49 (66) 97 Room Air 02/04/22 00:00 36.4 68 16 130/62 (84) 98 Room Air 02/03/22 21:00 98 Room Air 02/03/22 21:00 36.6 77 16 134/66 (88) 98 Room Air 02/03/22 20:41 Room Air 02/03/22 15:30 97 Room Air 02/03/22 15:27 36.2 58 16 128/61 (83) 99 Room Air 02/03/22 15:15 Room Air 02/03/22 15:00 36.1 10 115/69 (84) 99 Room Air 02/03/22 14:50 12 126/72 (90) 99 OxyMask 10.00 02/03/22 14:45 OxyMask 10.00 02/03/22 14:40 14 123/63 (83) 99 OxyMask 10.00 02/03/22 14:30 14 134/89 (104) 100 OxyMask 10.00 02/03/22 14:21 13 112/59 (76) 100 OxyMask 10.00 02/03/22 14:17 OxyMask 10.00 02/03/22 14:17 36.1 28 110/52 (71) 100 OxyMask 10.00 I & O 02/04/22 07:00 Intake Total 2205 ml Output Total 5650 ml Balance -3445 ml Vital signs are stable. Patient is afebrile. The abdomen is benign Pelvic exam is deferred Extremities show no clubbing or cyanosis. There is no Homans' sign. Assessment and plan Postoperative day #1 status post pelvic reconstructive surgery for complete vaginal prolapse and stress urinary incontinence. Patient is doing well bladder trial is ongoingAnd she will have routine convalescent care February 05, 2022 Patient is without complaint. She has not had a bowel movement since admission we discussed eventual use of cathartics if she feels like she needs to have a bowel movement and is not happening. Currently she does not complain of symptoms of constipation. Patient has not voided as of yet and has had post void residuals of in excess of [address] Burciaga is managing. PatientHas good pain control and is ambulating. Vital Signs Date Time Temp Pulse Resp B/P (MAP) Pulse Ox O2 Delivery O2 Flow Rate FiO2 02/05/22 08:10 Room Air 02/05/22 08:07 37.6 72 18 107/51 (69) 95 Room Air 02/05/22 04:15 37.4 77 18 111/51 (71) 95 02/05/22 00:00 37.8 81 18 106/49 (68) 96 02/04/22 20:15 97 Room Air 02/04/22 20:15 38.0 78 18 100/47 (64) 97 02/04/22 14:45 37.0 75 18 102/49 (66) 98 I & O 02/05/22 07:00 Intake Total 240 ml Output Total 800 ml Balance -560 ml Patient's abdomen is benign Extremities show no clubbing or cyanosis. There is no Homans' sign. Assessment and plan Hospital day 2 status post pelvic reconstructive surgery for complete vaginal prolapse and stress urinary incontinence. Patient is doing well except for return of bladder function. Dr. Burciaga is managing that issue with the patient. Plan will be for discharge home when patient is requesting discharge and it is okay with Dr. Burciaga as far as bladder management. We will order Dulcolax tablets for patient to take orally as needed need for bowel movement Patient has granulosa cell ovarian cancer and is stable with that. She did have paracentesis on the day of surgery with removal of in excess of 3500cc ascites. Patient is anemic but is asymptomatic at this point we will just continue obse rvationAnd allow for spontaneous resolution of her anemiaProviding no particular symptoms develop that would warrant blood transfusion February 06, 2022 Patient is without complaint. She has been unable to void. She has a postvoid residuals of up to [address] Burciaga is managing that issue. Patient has no other complaints. She is passing gas. She is ambulating she is tolerating p.o. well and she has good pain control. Vital Signs Date Time Temp Pulse Resp B/P (MAP) Pulse Ox O2 Delivery O2 Flow Rate FiO2 02/06/22 03:30 37.2 71 18 108/73 (85) 96 02/05/22 21:00 37.3 68 18 112/55 (74) 99 02/05/22 18:15 37.7 02/05/22 17:21 37.9 75 18 111/53 (72) 95 Room Air 02/05/22 12:21 37.5 63 18 117/58 (77) 97 Room Air 02/05/22 08:10 Room Air 02/05/22 08:07 37.6 72 18 107/51 (69) 95 Room Air I & O 02/06/22 07:00 Intake Total 800 ml Output Total 2375 ml Balance -1575 ml Vital signs are stable. Patient is afebrile. The abdomen is benign. Extremities show no clubbing or cyanosis. There is no Homans' sign. Pelvic exam was deferred Assessment and plan Postoperative day #3 status post pelvic reconstructive surgery for complete vaginal prolapse and stress urinary incontinence. Patient continues to experience urinary retention which Dr. Burciaga is managing. Plan will be for discharge home when recommended and allow by Dr. Burciaga. Otherwise continue supportive care LINCOLN DE LA FUENTE MD Feb 06, 2022 07:59
--- NOTE | 2022-02-06 08:28 | Progress Note - Urology ---
Progress Note-Urology Progress Notes/Assess & Plan Progress/Assessment & Plan UNABLE TO VOID. LARGE, WEAK, NEUROGENIC BLADDER. NO LEAKAGE. PLAN REEXPLAINED TO PATIENT. ORDERS PER DISCHARGE Final Diagnosis GLORIA AND RETENTION EDU CORNEJO MD Feb 06, 2022 08:28
[2022-02-06] MEDS: DOCUSATE SODIUM 100 MG (COLACE) CAP PO SCH (08:54)
[2022-02-06 08:55] VITALS: BP 124/61
[2022-02-06] MEDS: ACETAMINOPHEN 500 MG TAB (TYLENOL) PO PRN (08:55)
[2022-02-06] MEDS: IBUPROFEN 600 MG (MOTRIN) TAB PO PRN (08:55)
[2022-02-06] MEDS ORDERED: TAMSULOSIN 0.4 MG (FLOMAX) CAP PO SCH (09:00)
== END 2022-02-06 16:40 ==
LOC: SDC 10:10 → WS 10:11 → SDC 15:15 → WS 15:15 → SDC 02-05 10:59 → WS 02-05 10:59 → UNDOADMOB 02-05 10:59 → INTOOBSV 02-05 10:59 → SDC 02-06 16:40 → UNDODISOB 02-06 16:40
PROVIDERS: ADMIT Obstetrics & Gynecology; ATTEND Obstetrics & Gynecology
DX: N81.3 Complete uterovaginal prolapse (principal); N39.3 Stress incontinence (female) (male); N95.2 Postmenopausal atrophic vaginitis; D39.10 Neoplasm of uncertain behavior of unspecified ovary
CPT/HCPCS: 49083; 57265; 57288; 85025 ×2; 87081; 94664; C1771; G0378; G0379; 36415

== ENCOUNTER → 2022-02-03 | Outpatient (CLI) | payer MEDICARE ==
--- NOTE | 2022-01-25 15:36 | Diagnostic Imaging Report ---
INDICATION: Ascites. Sonographic interrogation of all 4 quadrants of the abdomen was performed. There is moderate ascites present in all 4 quadrants. The right lower quadrant was marked for Dr. Galarza for performance of paracentesis. IMPRESSION: Moderate ascites. Dictated by: Dictated on workstation # [id number]
[~2022-02-03] VITALS: Wt 49.0 kg
[~2022-02-03] MED LIST changes: +DOCU100C37 PO; +IBUP-844 PO; +LIDOCAINE 1% INJ 20 ML VIAL INJ ONE; +LIDOCAINE 2% 20 ML (XYLOCAINE) VIAL INJ ONE; +OXC5T PO
[2022-02-03 13:00] VITALS: BP 136/71
--- NOTE | 2022-02-03 14:03 | Diagnostic Imaging Report ---
INDICATION: Ascites. Evaluate for possible paracentesis. COMPARISON: None. FINDINGS: Sonographic guidance was provided during paracentesis by Dr. Galarza. Image provided shows free fluid within the right lower abdominal quadrant. IMPRESSION: 1. Ultrasound guidance provided during paracentesis by Dr. Galarza. Dictated by: Dictated on workstation # [id number]
== END ==
LOC: RAD 10:16
PROVIDERS: ATTEND Surgery
DX: R18.8 Other ascites (principal)
CPT/HCPCS: 49082; 76942

== ENCOUNTER → 2022-02-10 | Outpatient (CLI) | payer MEDICARE ==
[~2022-02-10] MED LIST changes: +DOCU100C37 PO; +IBUP-844 PO; +OXC5T PO
[2022-02-10 19:16] LABS: BILIRUBIN,URINE NEGATIVE (NEGATIVE); CLARITY,URINE SL CLOUDY; COLOR,URINE YELLOW; GLUCOSE, URINE (UA) NEGATIVE (NEGATIVE); KETONES,URINE NEGATIVE (NEGATIVE); LEUKOCYTE ESTERASE ,URINE 3+ (NEGATIVE); NITRITE,URINE NEGATIVE (NEGATIVE); PROTEIN,URINE NEGATIVE (NEGATIVE)
[2022-02-10 19:33] LABS: BACTERIA,URINE LARGE /HPF; WBC,URINE TNTC /HPF
== END ==
LOC: LABNPT 19:08
PROVIDERS: ATTEND Internal Medicine
DX: R41.82 Altered mental status, unspecified (principal)
CPT/HCPCS: 81000; 87077; 87088; 87186

== ENCOUNTER → 2022-03-15 | Outpatient (CLI) | payer MEDICARE ==
--- NOTE | 2022-03-07 15:47 | HISTORY AND PHYSICAL ---
DATE OF SERVICE: ATTENDING PROFESSOR OF POLITICAL SCIENCE: Jennifer Hastings APRN. HISTORY OF PRESENT ILLNESS: The patient is a 76-year-old female known to us. She has had three previous paracentesis for symptomatic ascites. 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 She develops abdominal distention on an intermittent basis and found to have ascites. Again, she has developed recurrence of abdominal distention and we will schedule her for ultrasound marking and paracentesis. PAST MEDICAL HISTORY: Granulosa cell ovarian tumor, vaginal prolapse. PAST SURGICAL HISTORY: Total hysterectomy, tonsillectomy, oophorectomy 80s, breast lumpectomy, appendectomy. ALLERGIES: No known drug allergies. MEDICATIONS: Estradiol cream. SOCIAL HISTORY: Negative smoke, negative alcohol. FAMILY HISTORY: Noncontributory. VITAL SIGNS: Stable, afebrile. Blood pressure 115/64. Body mass index 19.8. REVIEW OF SYSTEMS: A well-nourished female, currently in no acute distress. She is not experiencing any shortness of breath or difficulty breathing. No chest pain, palpitations, diaphoresis. No nausea, vomiting, no diarrhea or constipation, no red blood per rectum, no dark tarry stools. No fever, chills, no recent inadvertent weight loss. All other review of systems negative. PHYSICAL EXAMINATION: CHEST: Clear. Good breath sounds bilaterally. HEART: Regular, no murmurs. EXTREMITIES: No lower extremity edema, negative Homans sign. HEENT: No scleral icterus. NECK: No cervical lymphadenopathy. ABDOMEN: Slightly distended with a positive fluid shift wave. No abdominal pain. No hernias. SKIN: Warm, dry. ASSESSMENT AND PLAN: A 76-year-old female with a history of a granulosa cell ovarian tumor with recurrent symptomatic ascites with again recurrence of her ascites. We will schedule her for ultrasound marking as well as therapeutic paracentesis in same day surgery. Job ID: [id number] DocumentID: [id number] Dictated Date: 03/07/2022 15:20:16 Facilities Engineering Manager Date: 03/07/2022 15:46:06 Dictated By: LEANA CONTRERAS MD [facility]
[~2022-03-15] VITALS: Ht 152.4 cm; Wt 43.1 kg
[2022-03-15 12:20] VITALS: BP 115/60
--- NOTE | 2022-03-18 15:41 | Diagnostic Imaging Report ---
INDICATION: Ascites. IMPRESSION: Ultrasound-guided needle placement was performed for paracentesis by Dr. Galarza. Dictated by: Dictated on workstation # [id number]
== END ==
LOC: RAD 12:00
PROVIDERS: ATTEND Surgery
DX: R18.8 Other ascites (principal)

== ENCOUNTER 2022-03-22 10:32 | Outpatient (RCR) | payer MEDICARE | END 2022-04-12 | disposition home or self-care (01) | LOC: ONC 10:32 | PROVIDERS: ATTEND Internal Medicine Hematology & Oncology | DX: D39.10 Neoplasm of uncertain behavior of unspecified ovary (principal) | CPT/HCPCS: 99213 ==

== ENCOUNTER → 2022-04-14 | Outpatient (CLI) | payer MEDICARE ==
--- NOTE | 2022-04-14 12:18 | CONSULTATION REPORT ---
DATE OF SERVICE: 04/14/2022 HISTORY OF PRESENT ILLNESS: The patient is a 76-year-old female, who is actually meeting me in the preanesthesia unit for possible paracentesis. I had actually just seen her in the office. She was complaining of some abdominal pain, but minimal. Mainly, her complaint was that her belly was distended. She has had previous paracentesis to drain this fluid. She unfortunately has a history of cancer that is causing this fluid collection. When I saw her, she was also mentioning that she had a lot of swelling in her legs. I spoke with the patient for about 30 minutes, also within this time, was talking to her physicians and going over the ultrasound and monitoring the ultrasound with the tech. Unfortunately, she did not have enough fluid in the belly to be able to safely do a paracentesis. She had about 1.5 cm of skin and tissue between the outside and the inside and then only about 1 to 2 cm of fluid before we got to the small intestine. As the gas technician was putting the probe, I showed that if I pushed even a little bit, it was automatically pushing basically skin and tissue right into the bowel and this is what would happen when we tried to advance a needle. I discussed with her the fact that I thought this would be too risky. The patient understood and her daughter understood. We then discussed a little bit more about when would be appropriate time to do a paracentesis. We went over possible abdominal pain, increasing distention, shortness of breath, any of these might be a time to relook and redo an ultrasound. Also discussed a little bit about her edema, talked about her getting her to talk with her physicians about possibly some type of diuretic. We talked about when she lies down to elevate her feet, basically going over and doing over 30 minutes of discussion with the patient's family and everything else and then the patient ultimately agreed that a paracentesis at this time would not be warranted, would be too risky and she will call me back if anything changes or come see me in the office. Both, she and her daughter were very happy. All questions answered to her satisfaction and at this point, it was elected not do the paracentesis and they left. Job ID: [id number] DocumentID: [id number] Dictated Date: 04/14/2022 11:25:01 [employer] Consultant Date: 04/14/2022 12:15:00 Dictated By: BRAULIO GRANGER DO
--- NOTE | 2022-04-14 12:30 | Diagnostic Imaging Report ---
Examination: Ultrasound abdomen limited. Date: April 14, 2022. Indication: 76-year-old female, evaluation for ascites. Comparison: October 28, 2021. Findings: There is a small volume ascites Impression: 1. Small volume ascites. Dictated by: Dictated on workstation # [id number]
== END ==
LOC: RAD 08:44
PROVIDERS: ATTEND Surgery
DX: R18.8 Other ascites (principal)
CPT/HCPCS: 76705

== ENCOUNTER 2022-05-05 12:53 | Outpatient (CLI) | payer MEDICARE ==
[2022-05-05 13:02] VITALS: BP 137/70
--- NOTE | 2022-05-05 14:56 | Diagnostic Imaging Report ---
PROCEDURE: US Abdomen, limited. TECHNIQUE: Multiple realtime grayscale images were obtained over the abdomen in various projections. INDICATION: Ascites. All 4 quadrants of the abdomen were evaluated for ascites. Trace free fluid is identified in the right upper and left upper quadrant as well as left lower quadrant. There is some mild ascites in the right lower quadrant with a pocket measuring 6.8 cm. IMPRESSION: Ascites, as described. Dictated by: Dictated on workstation # [id number]
== END 2022-05-05 13:40 | disposition home or self-care (01) ==
LOC: SDC 12:53
PROVIDERS: ATTEND Surgery
DX: R18.8 Other ascites (principal)
CPT/HCPCS: 76705

== ENCOUNTER → 2022-06-23 | Outpatient (CLI) | payer MEDICARE ==
--- NOTE | 2022-06-23 17:22 | Diagnostic Imaging Report ---
PROCEDURE: US Abdomen, limited. TECHNIQUE: Multiple realtime grayscale images were obtained over the abdomen in various projections. INDICATION: Assessment for ascites CORRELATION STUDY: None FINDINGS: Imaging of the abdomen demonstrates very small areas of ascites to be present. Large pocket and/or sizable collection for paracentesis is not suggested. IMPRESSION: 1. Small volume ascites. Dictated by: Dictated on workstation # [id number]
== END ==
LOC: RAD 11:59
PROVIDERS: ATTEND Surgery
DX: R18.8 Other ascites (principal)
CPT/HCPCS: 76705

== ENCOUNTER 2022-06-28 10:32 | Outpatient (RCR) | payer MEDICARE | END 2022-07-11 | disposition home or self-care (01) | LOC: ONC 10:32 | PROVIDERS: ATTEND Internal Medicine Hematology & Oncology | DX: D39.10 Neoplasm of uncertain behavior of unspecified ovary (principal) ==

== ENCOUNTER 2022-11-29 13:48 | Day surgery (SDC) | payer MEDICARE ==
[2022-11-29 14:20] VITALS: BP 0/0
--- NOTE | 2022-11-29 16:02 | Diagnostic Imaging Report ---
PROCEDURE: US Abdomen, limited. TECHNIQUE: Multiple realtime grayscale images were obtained over the abdomen in various projections. INDICATION: Ascites. All 4 quadrants of the abdomen were evaluated. There is some mild ascites in the right upper and left upper quadrants. There is also mild to moderate ascites left lower quadrant. Right lower quadrant is without free fluid. IMPRESSION: Ascites, as described. Dictated by: Dictated on workstation # [id number]
== END 2022-11-29 14:20 | disposition home or self-care (01) ==
LOC: SDC 13:48
PROVIDERS: ATTEND Surgery
DX: R18.8 Other ascites (principal)
CPT/HCPCS: 76705

== ENCOUNTER 2023-02-22 11:20 | Day surgery (SDC) | payer MEDICARE ==
[~2023-02-22] VITALS: Ht 154 cm; Wt 47.7 kg
[2023-02-22] MEDS ORDERED: LIDOCAINE 1% INJ 20 ML VIAL ONE (11:48)
[2023-02-22 12:59] VITALS: BP 120/64
--- NOTE | 2023-02-22 14:01 | Progress Note-Post Operative ---
Post-Operative Progess Note Surgeon (s)/Surgical Garment Assembler (s) Surgeon BRAULIO GRANGER DO Surgical Garment Assembler: none Pre-Operative Diagnosis Ascites Post-Operative Diagnosis same pending path Procedure & Operative Findings Date of Procedure 02/22/23 Procedure Performed/Findings Procedural Note: Paracentesis The patient was in the PACU in her bed. US came and found the largest pocket of fluid. The abdomen was then prepped and draped and timeout was performed. Local anesthetic was infiltrated and #11 blade scalpel was used to make a small skin incision. [id number] needle and catheter were then advanced until a reddish straw-colored fluid was withdrawn. The catheter was advanced and the needle was removed. Plan was to remove as much fluid as we can. Once done draining, the catheter will be removed and sterile bandage applied. The nurse called and they were able to get 2950ml of fluid. Pt will not need albumin per protocol. The patient tolerated procedure well without any complications. Anesthesia Type local lidocaine Estimated Blood Loss Estimated blood loss (mL): scant, unsure if what was in paracentesis drainage was old or new Specimens/Packing Specimens Removed 2950 Ascitic fluid sent for Cytology BRAULIO GRANGER DO Feb 22, 2023 14:01
== END 2023-02-22 13:20 | disposition home or self-care (01) ==
LOC: SDC 11:20
PROVIDERS: ATTEND Surgery
DX: R18.8 Other ascites (principal)
CPT/HCPCS: 49083